=== PATIENT | male | born 1950 | race Caucasian/White ===

== ENCOUNTER 2021-03-26 16:46 | Inpatient (IN) | payer MEDICARE, OTHER ==
[2021-03-28] MEDS ORDERED: HumaLOG 300 UNITS/3 ML VIAL SC PRN (00:05)
[2021-03-28] MEDS ORDERED: Acetaminophen 325 MG TAB PO PRN (00:05)
[2021-03-28] MEDS ORDERED: Dextrose 5% in Water 1,000 ML IV PRN (00:05)
[2021-03-28] MEDS ORDERED: Dextrose 50% Abboject 50 ML SYRINGE SLOW IVP PRN (00:05)
[2021-03-28] MEDS ORDERED: Acetaminophen 650 MG Suppository PR PRN (00:05)
[2021-03-28] MEDS ORDERED: Ondansetron ODT 4 MG TAB PO PRN (00:05)
[2021-03-28 01:35] LABS: Hemoglobin 9.4 g/dL (14.0-18.0); Mean Corpuscular HGB CONC 30.8 g/dL (32.0-36.0); Mean Corpuscular Hemoglobin 31.2 pg (27.0-31.0); RBC Distribution Width 17.3 % (11.5-14.5); Red Blood Cell (RBC) Count 3.01 mill/uL (4.70-6.10); White Blood Cell (WBC) Count 6.2 thou/uL (4.8-10.8)
[2021-03-28 01:37] LABS: ALT (SGPT) 9 U/L (8-55); AST (SGOT) 23 U/L (5-34); Albumin 2.2 g/dL (3.4-4.8); Alkaline Phosphatase 58 U/L (40-110); Anion Gap 23 mmol/L (10-20); BUN (Urea Nitrogen) 39 mg/dL (8.4-25.7); Bilirubin, Total 0.4 mg/dL (0.2-1.2); Calc. Creatinine Clearance 13 mL/min (70-130); Calcium 8.4 mg/dL (7.8-10.44); Carbon Dioxide 19 mmol/L (23-31); Chloride 101 mmol/L (98-107); Globulin 4.2 g/dL (2.4-3.5); Glucose 231 mg/dL (80-115); Magnesium 1.8 mg/dL (1.6-2.6); Phosphorus 3.2 mg/dL (2.3-4.7); Potassium 3.5 mmol/L (3.5-5.1); Protein, Total 6.4 g/dL (5.8-8.1); Sodium 139 mmol/L (136-145)
[2021-03-28 01:51] LABS: #Lymphocytes 0.6 thou/uL (1.20-3.40); #Monocytes 0.6 thou/uL (0.11-0.59); #Neutrophils 4.9 thou/uL (1.40-6.50); %Basophils 0.6 % (0.0-1.0); %Eosinophils 0.3 % (0.0-10.0); %Lymphocytes 10.2 % (21.0-51.0); %Monocytes 8.9 % (0.0-10.0); Anisocytosis SLIGHT = 6-15 cells (100X) (0-5/hpf); MDiff Complete? YES; Mean Platelet Volume 8.8 fL (7.4-10.4); Platelet Count 113 thou/uL (130-400); Platelet Morphology Comment Appears Decreased
[2021-03-28 08:38] LABS: INR-International Normal Ratio 2.3; Prothrombin Time 25.8 sec (12.0-14.7)
[2021-03-28] MEDS ORDERED: Epoetin (ESRD) 20,000 UNITS/ML SC SCH (08:45)
[2021-03-28] MEDS: Zinc Sulfate 220 MG CAP PO SCH (10:26)
[2021-03-28] MEDS: Ascorbic Acid 500 mg Chewable Tablet PO SCH (10:26)
[2021-03-28] MEDS: Cholecalciferol (Vitamin D3) 400 UNITS TAB PO SCH (10:26)
[2021-03-28] MEDS ORDERED: Heparin 10,000 UNITS/ 10 ML VIAL ONE ×2 (10:38→11:08)
[2021-03-28] MEDS ORDERED: Clopidogrel Bisulfate 300 MG TAB PO SCH (12:00)
[2021-03-28] MEDS ORDERED: Pantoprazole 40 MG VIAL IVP SCH ×2 (12:30→13:00)
[2021-03-28] MEDS: EPOETIN ALFA-EPBX (ESRD) 4,000 UNIT/ML VIAL SC SCH (14:00)
[2021-03-28] MEDS: Warfarin Sodium 1 MG TAB PO SCH (16:42)
[2021-03-28] MEDS: Ondansetron PF 4 MG/2 ML Vial IVP PRN (16:49)
[2021-03-28 20:38] LABS: HBSAg Index 0.43 S/CO (0-0.99); Hep B Surf Ag Non-Reactive S/CO (NonReactive)
[2021-03-29 06:22] LABS: INR-International Normal Ratio 2.3
[2021-03-29] MEDS: Cholecalciferol (Vitamin D3) 400 UNITS TAB PO SCH (09:18)
[2021-03-29] MEDS: Ondansetron PF 4 MG/2 ML Vial IVP PRN (09:18)
[2021-03-29] MEDS: Ascorbic Acid 500 mg Chewable Tablet PO SCH (09:18)
[2021-03-29] MEDS: Pantoprazole 40 MG VIAL IVP SCH (09:19)
[2021-03-29] MEDS: Zinc Sulfate 220 MG CAP PO SCH (09:19)
[2021-03-29] MEDS: Clopidogrel Bisulfate 75 MG TAB PO SCH (09:19)
[2021-03-29] MEDS: Warfarin Sodium 1 MG TAB PO SCH (18:10)
[2021-03-29] MEDS: Ondansetron PF 4 MG/2 ML Vial IVP SCH ×2 (18:10→23:28)
[2021-03-30] MEDS: Ondansetron PF 4 MG/2 ML Vial IVP SCH ×3 (06:54→18:54)
[2021-03-30 07:00] LABS: Hemoglobin 9.8 g/dL (14.0-18.0); Platelet Count 122 thou/uL (130-400)
[2021-03-30 07:16] LABS: INR-International Normal Ratio 2.5; Prothrombin Time 27.7 sec (12.0-14.7)
[2021-03-30 09:38] LABS: Hemoglobin A1c 7.9 % (4.0-6.0)
[2021-03-30] MEDS: Clopidogrel Bisulfate 75 MG TAB PO SCH (10:00)
[2021-03-30] MEDS: Ascorbic Acid 500 mg Chewable Tablet PO SCH (10:01)
[2021-03-30] MEDS: Zinc Sulfate 220 MG CAP PO SCH (10:01)
[2021-03-30] MEDS: Cholecalciferol (Vitamin D3) 400 UNITS TAB PO SCH (10:01)
[2021-03-30] MEDS: Pantoprazole 40 MG VIAL IVP SCH (10:02)
[2021-03-30] MEDS ORDERED: Heparin 10,000 UNITS/ 10 ML VIAL ONE (10:43)
[2021-03-30] MEDS ORDERED: Cosyntropin 250 MCG VIAL SLOW IVP SCH ×2 (16:15→16:30)
[2021-03-30] MEDS: Warfarin Sodium 1 MG TAB PO SCH (18:54)
[2021-03-31] MEDS: Ondansetron PF 4 MG/2 ML Vial IVP SCH ×4 (00:47→21:52)
[2021-03-31 13:41] LABS: #Lymphocytes 0.9 thou/uL (1.20-3.40); #Monocytes 0.5 thou/uL (0.11-0.59); #Neutrophils 3.8 thou/uL (1.40-6.50); %Basophils 0.2 % (0.0-1.0); %Eosinophils 0.2 % (0.0-10.0); %Lymphocytes 17.7 % (21.0-51.0); Hemoglobin 10.4 g/dL (14.0-18.0); Mean Corpuscular HGB CONC 30.8 g/dL (32.0-36.0); Mean Corpuscular Hemoglobin 29.2 pg (27.0-31.0); Mean Corpuscular Volume 94.8 fL (78.0-98.0); Mean Platelet Volume 8.3 fL (7.4-10.4); Platelet Count 135 thou/uL (130-400); RBC Distribution Width 17.5 % (11.5-14.5); Red Blood Cell (RBC) Count 3.56 mill/uL (4.70-6.10); White Blood Cell (WBC) Count 5.3 thou/uL (4.8-10.8)
[2021-03-31 13:52] LABS: INR-International Normal Ratio 2.7; Prothrombin Time 29.5 sec (12.0-14.7)
[2021-03-31] MEDS ORDERED: Amiodarone 200 MG TAB PO SCH (14:00)
[2021-03-31 14:02] LABS: Anion Gap 21 mmol/L (10-20); BUN (Urea Nitrogen) 22 mg/dL (8.4-25.7); Calc. Creatinine Clearance 17 mL/min (70-130); Calcium 8.5 mg/dL (7.8-10.44); Carbon Dioxide 22 mmol/L (23-31); Chloride 97 mmol/L (98-107); Glucose 175 mg/dL (80-115); Potassium 3.4 mmol/L (3.5-5.1); Sodium 137 mmol/L (136-145)
[2021-03-31] MEDS: Ascorbic Acid 500 mg Chewable Tablet PO SCH (16:27)
[2021-03-31] MEDS: Cholecalciferol (Vitamin D3) 400 UNITS TAB PO SCH (16:27)
[2021-03-31] MEDS: Clopidogrel Bisulfate 75 MG TAB PO SCH (16:27)
[2021-03-31] MEDS: Pantoprazole 40 MG VIAL IVP SCH (16:27)
[2021-03-31] MEDS: Zinc Sulfate 220 MG CAP PO SCH (16:28)
[2021-03-31] MEDS: Metoclopramide HCl 10 MG TAB PO SCH ×2 (18:19→21:56)
[2021-03-31] MEDS: Metoprolol Tartrate 50 MG TAB PO SCH (21:56)
[2021-04-01] MEDS: Melatonin 3 MG TAB PO PRN ×2 (00:52→23:00)
[2021-04-01] MEDS: Ondansetron PF 4 MG/2 ML Vial IVP SCH ×5 (00:52→23:42)
[2021-04-01] MEDS: Pantoprazole 40 MG VIAL IVP SCH (08:34)
[2021-04-01] MEDS: Clopidogrel Bisulfate 75 MG TAB PO SCH (08:34)
[2021-04-01] MEDS: Ascorbic Acid 500 mg Chewable Tablet PO SCH (08:35)
[2021-04-01] MEDS: Zinc Sulfate 220 MG CAP PO SCH (08:35)
[2021-04-01] MEDS: Cholecalciferol (Vitamin D3) 400 UNITS TAB PO SCH (08:36)
[2021-04-01] MEDS: Amiodarone 200 MG TAB PO SCH (08:36)
[2021-04-01] MEDS: Metoclopramide HCl 10 MG TAB PO SCH ×4 (08:37→21:22)
[2021-04-01] MEDS: Metoprolol Tartrate 50 MG TAB PO SCH ×3 (08:37→21:22)
[2021-04-01 11:55] LABS: Hemoglobin 9.8 g/dL (14.0-18.0); Platelet Count 119 thou/uL (130-400)
[2021-04-01 12:03] LABS: INR-International Normal Ratio 2.6
[2021-04-01] MEDS: Dronabinol 2.5 MG CAP PO SCH (18:27)
[2021-04-01] MEDS ORDERED: Dronabinol 2.5 MG CAP PO SCH (19:00)
[2021-04-02 06:09] LABS: INR-International Normal Ratio 2.5; Prothrombin Time 27.5 sec (12.0-14.7)
[2021-04-02] MEDS: Ondansetron PF 4 MG/2 ML Vial IVP SCH ×3 (06:14→17:24)
[2021-04-02] MEDS: Clopidogrel Bisulfate 75 MG TAB PO SCH (09:22)
[2021-04-02] MEDS: Ascorbic Acid 500 mg Chewable Tablet PO SCH (09:22)
[2021-04-02] MEDS: Metoprolol Tartrate 50 MG TAB PO SCH ×2 (09:23→21:15)
[2021-04-02] MEDS: Amiodarone 200 MG TAB PO SCH (09:23)
[2021-04-02] MEDS: Cholecalciferol (Vitamin D3) 400 UNITS TAB PO SCH (09:23)
[2021-04-02] MEDS: Zinc Sulfate 220 MG CAP PO SCH (09:23)
[2021-04-02] MEDS: Metoclopramide HCl 10 MG TAB PO SCH ×4 (09:23→20:09)
[2021-04-02] MEDS: Dronabinol 2.5 MG CAP PO SCH ×2 (09:24→17:22)
[2021-04-02] MEDS: Pantoprazole 40 MG VIAL IVP SCH (09:25)
[2021-04-02] MEDS ORDERED: Digoxin 0.5 MG/2 ML AMP SLOW IVP SCH ×2 (14:15→20:30)
[2021-04-02] MEDS: Warfarin Sodium 1 MG TAB PO SCH (17:23)
[2021-04-03] MEDS: Ondansetron PF 4 MG/2 ML Vial IVP SCH ×5 (01:01→23:49)
[2021-04-03 07:02] LABS: Hemoglobin 9.8 g/dL (14.0-18.0); Platelet Count 110 thou/uL (130-400)
[2021-04-03] MEDS ORDERED: Amiodarone 200 MG TAB PO SCH (09:00)
[2021-04-03] MEDS ORDERED: Digoxin 0.125 MG TAB PO SCH (09:00)
[2021-04-03] MEDS: Cholecalciferol (Vitamin D3) 400 UNITS TAB PO SCH (09:04)
[2021-04-03] MEDS: Dronabinol 2.5 MG CAP PO SCH ×2 (09:04→18:31)
[2021-04-03] MEDS: Metoclopramide HCl 10 MG TAB PO SCH ×4 (09:04→22:00)
[2021-04-03] MEDS: Metoprolol Tartrate 50 MG TAB PO SCH ×2 (09:05→22:00)
[2021-04-03] MEDS: Pantoprazole 40 MG VIAL IVP SCH (09:05)
[2021-04-03] MEDS: Clopidogrel Bisulfate 75 MG TAB PO SCH (09:05)
[2021-04-03] MEDS: Ascorbic Acid 500 mg Chewable Tablet PO SCH (09:05)
[2021-04-03] MEDS: Zinc Sulfate 220 MG CAP PO SCH (09:05)
[2021-04-03] MEDS: Warfarin Sodium 1 MG TAB PO SCH (18:29)
[2021-04-04 05:22] LABS: #Eosinphils 0.1 thou/uL (0.0-0.7); #Lymphocytes 0.9 thou/uL (1.20-3.40); #Monocytes 0.4 thou/uL (0.11-0.59); #Neutrophils 4.3 thou/uL (1.40-6.50); %Basophils 0.2 % (0.0-1.0); %Lymphocytes 15.7 % (21.0-51.0); %Monocytes 6.3 % (0.0-10.0); Hemoglobin 9.8 g/dL (14.0-18.0); Mean Corpuscular HGB CONC 31.8 g/dL (32.0-36.0); Mean Corpuscular Hemoglobin 29.4 pg (27.0-31.0); Mean Corpuscular Volume 92.3 fL (78.0-98.0); Platelet Count 118 thou/uL (130-400); RBC Distribution Width 16.8 % (11.5-14.5); Red Blood Cell (RBC) Count 3.32 mill/uL (4.70-6.10); White Blood Cell (WBC) Count 5.6 thou/uL (4.8-10.8)
[2021-04-04 05:32] LABS: INR-International Normal Ratio 3.1; Prothrombin Time 32.5 sec (12.0-14.7)
[2021-04-04 05:46] LABS: Anion Gap 12 mmol/L (10-20); BUN (Urea Nitrogen) 37 mg/dL (8.4-25.7); Calc. Creatinine Clearance 11 mL/min (70-130); Calcium 8.1 mg/dL (7.8-10.44); Carbon Dioxide 27 mmol/L (23-31); Chloride 99 mmol/L (98-107); Glucose 186 mg/dL (80-115); Potassium 3.3 mmol/L (3.5-5.1); Sodium 135 mmol/L (136-145)
[2021-04-04] MEDS: Metoclopramide HCl 10 MG TAB PO SCH ×4 (06:35→21:55)
[2021-04-04] MEDS: Ondansetron PF 4 MG/2 ML Vial IVP SCH ×3 (06:35→18:21)
[2021-04-04] MEDS: HumaLOG 300 UNITS/3 ML VIAL SC PRN (06:36)
[2021-04-04] MEDS: Ascorbic Acid 500 mg Chewable Tablet PO SCH (08:44)
[2021-04-04] MEDS: Dronabinol 2.5 MG CAP PO SCH ×2 (08:44→18:21)
[2021-04-04] MEDS: Metoprolol Tartrate 50 MG TAB PO SCH ×2 (08:45→21:56)
[2021-04-04] MEDS: Cholecalciferol (Vitamin D3) 400 UNITS TAB PO SCH (08:45)
[2021-04-04] MEDS: Zinc Sulfate 220 MG CAP PO SCH (08:45)
[2021-04-04] MEDS: Clopidogrel Bisulfate 75 MG TAB PO SCH (08:45)
[2021-04-04] MEDS: Pantoprazole 40 MG VIAL IVP SCH (08:45)
[2021-04-04] MEDS ORDERED: Heparin 10,000 UNITS/ 10 ML VIAL ONE (09:46)
[2021-04-04 13:38] LABS: A/G Ratio 0.7 (0.7-1.7); Albumin 2.5 g/dL (2.9-4.4); Alpha 1 0.2 g/dL (0.0-0.4); Alpha 2 0.6 g/dL (0.4-1.0); Beta 0.9 g/dL (0.7-1.3); Gamma 1.8 g/dL (0.4-1.8); Globulin, Total 3.6 g/dL (2.2-3.9); M-Spike Not Observed g/dL (Not Observed); Protein Electrophoresis Intrp Note: (.)
[2021-04-04 13:38] LABS: Alpha 1 - Ur 3.2 % (.); Alpha 2 - Ur 11.3 % (.); Beta-Ur 12.5 % (.); M-Spike,% Not Observed % (Not Observed); Protein, Urine 155.6 mg/dL (Not Estab.)
[2021-04-04] MEDS: Warfarin Sodium 1 MG TAB PO SCH (18:19)
[2021-04-04] MEDS: EPOETIN ALFA-EPBX (ESRD) 4,000 UNIT/ML VIAL SC SCH (18:22)
[2021-04-04] MEDS ORDERED: guaiFENesin 200 MG TAB PO PRN (22:11)
[2021-04-04] MEDS: Benzonatate 100 MG CAP PO PRN (22:40)
[2021-04-05] MEDS: Ondansetron PF 4 MG/2 ML Vial IVP SCH ×4 (00:59→17:24)
[2021-04-05 05:21] LABS: #Monocytes 0.4 thou/uL (0.11-0.59); #Neutrophils 4.3 thou/uL (1.40-6.50); %Basophils 0.5 % (0.0-1.0); %Eosinophils 0.2 % (0.0-10.0); %Lymphocytes 17.6 % (21.0-51.0); %Monocytes 7.1 % (0.0-10.0); %Neutrophils 74.6 % (42.0-75.0); Hemoglobin 10.3 g/dL (14.0-18.0); Mean Corpuscular Hemoglobin 30.2 pg (27.0-31.0); Mean Corpuscular Volume 94.6 fL (78.0-98.0); Mean Platelet Volume 8.5 fL (7.4-10.4); Platelet Count 126 thou/uL (130-400); Red Blood Cell (RBC) Count 3.39 mill/uL (4.70-6.10); White Blood Cell (WBC) Count 5.7 thou/uL (4.8-10.8)
[2021-04-05 05:29] LABS: INR-International Normal Ratio 2.8; Prothrombin Time 29.9 sec (12.0-14.7)
[2021-04-05] MEDS: Ascorbic Acid 500 mg Chewable Tablet PO SCH (07:28)
[2021-04-05] MEDS: Pantoprazole 40 MG VIAL IVP SCH (07:28)
[2021-04-05] MEDS: Zinc Sulfate 220 MG CAP PO SCH (07:28)
[2021-04-05] MEDS: Digoxin 0.125 MG TAB PO SCH (07:28)
[2021-04-05] MEDS: Clopidogrel Bisulfate 75 MG TAB PO SCH (07:29)
[2021-04-05] MEDS: Cholecalciferol (Vitamin D3) 400 UNITS TAB PO SCH (07:29)
[2021-04-05] MEDS: Metoclopramide HCl 10 MG TAB PO SCH ×4 (07:29→21:07)
[2021-04-05] MEDS: Metoprolol Tartrate 50 MG TAB PO SCH ×2 (07:29→21:07)
[2021-04-05] MEDS: Benzonatate 100 MG CAP PO PRN ×2 (07:36→21:07)
[2021-04-05] MEDS: Dronabinol 2.5 MG CAP PO SCH ×2 (11:34→18:14)
[2021-04-05] MEDS ORDERED: Potassium Chloride 20 MEQ TAB PO SCH (12:00)
[2021-04-05] MEDS: Warfarin Sodium 1 MG TAB PO SCH (17:29)
[2021-04-06] MEDS: Ondansetron PF 4 MG/2 ML Vial IVP SCH ×4 (00:23→18:10)
[2021-04-06 05:24] LABS: #Lymphocytes 0.8 thou/uL (1.20-3.40); #Monocytes 0.4 thou/uL (0.11-0.59); #Neutrophils 4.4 thou/uL (1.40-6.50); %Basophils 0.1 % (0.0-1.0); %Eosinophils 0.5 % (0.0-10.0); %Lymphocytes 13.6 % (21.0-51.0); %Monocytes 6.5 % (0.0-10.0); %Neutrophils 79.2 % (42.0-75.0); Hemoglobin 10.5 g/dL (14.0-18.0); Mean Corpuscular HGB CONC 31.4 g/dL (32.0-36.0); Mean Corpuscular Hemoglobin 29.3 pg (27.0-31.0); Mean Corpuscular Volume 93.3 fL (78.0-98.0); Mean Platelet Volume 8.1 fL (7.4-10.4); Platelet Count 154 thou/uL (130-400); RBC Distribution Width 17.4 % (11.5-14.5); Red Blood Cell (RBC) Count 3.59 mill/uL (4.70-6.10); White Blood Cell (WBC) Count 5.6 thou/uL (4.8-10.8)
[2021-04-06 05:35] LABS: INR-International Normal Ratio 3.3; Prothrombin Time 34.5 sec (12.0-14.7)
[2021-04-06] MEDS ORDERED: Heparin 10,000 UNITS/ 10 ML VIAL ONE (08:52)
[2021-04-06] MEDS: Ascorbic Acid 500 mg Chewable Tablet PO SCH (09:27)
[2021-04-06] MEDS: Metoclopramide HCl 10 MG TAB PO SCH ×4 (09:27→21:41)
[2021-04-06] MEDS: Cholecalciferol (Vitamin D3) 400 UNITS TAB PO SCH (09:27)
[2021-04-06] MEDS: Pantoprazole 40 MG VIAL IVP SCH (09:27)
[2021-04-06] MEDS: Zinc Sulfate 220 MG CAP PO SCH (09:27)
[2021-04-06] MEDS: Clopidogrel Bisulfate 75 MG TAB PO SCH (09:27)
[2021-04-06] MEDS: Metoprolol Tartrate 50 MG TAB PO SCH ×2 (09:28→21:41)
[2021-04-06] MEDS: Benzonatate 100 MG CAP PO PRN ×2 (11:05→21:44)
[2021-04-06] MEDS: Dronabinol 2.5 MG CAP PO SCH ×2 (11:25→18:10)
[2021-04-06] MEDS: HumaLOG 300 UNITS/3 ML VIAL SC PRN (18:12)
[2021-04-07] MEDS: Ondansetron PF 4 MG/2 ML Vial IVP SCH ×4 (00:39→18:28)
[2021-04-07 04:40] LABS: #Lymphocytes 0.8 thou/uL (1.20-3.40); #Monocytes 0.5 thou/uL (0.11-0.59); #Neutrophils 3.9 thou/uL (1.40-6.50); %Basophils 0.3 % (0.0-1.0); %Eosinophils 0.6 % (0.0-10.0); %Lymphocytes 15.4 % (21.0-51.0); %Neutrophils 74.6 % (42.0-75.0); Hemoglobin 9.9 g/dL (14.0-18.0); Mean Corpuscular HGB CONC 30.7 g/dL (32.0-36.0); Mean Corpuscular Hemoglobin 28.4 pg (27.0-31.0); Mean Corpuscular Volume 92.7 fL (78.0-98.0); Platelet Count 153 thou/uL (130-400); RBC Distribution Width 17.5 % (11.5-14.5); Red Blood Cell (RBC) Count 3.48 mill/uL (4.70-6.10); White Blood Cell (WBC) Count 5.2 thou/uL (4.8-10.8)
[2021-04-07 05:02] LABS: INR-International Normal Ratio 3.6; Prothrombin Time 36.7 sec (12.0-14.7)
[2021-04-07] MEDS: Dronabinol 2.5 MG CAP PO SCH ×2 (09:19→16:45)
[2021-04-07] MEDS: Digoxin 0.125 MG TAB PO SCH (09:19)
[2021-04-07] MEDS: Metoclopramide HCl 10 MG TAB PO SCH ×4 (09:20→21:34)
[2021-04-07] MEDS: Cholecalciferol (Vitamin D3) 400 UNITS TAB PO SCH (09:20)
[2021-04-07] MEDS: Zinc Sulfate 220 MG CAP PO SCH (09:20)
[2021-04-07] MEDS: Clopidogrel Bisulfate 75 MG TAB PO SCH (09:20)
[2021-04-07] MEDS: Ascorbic Acid 500 mg Chewable Tablet PO SCH (09:20)
[2021-04-07] MEDS: Folic Acid 1 MG TAB PO SCH (09:20)
[2021-04-07] MEDS: Metoprolol Tartrate 50 MG TAB PO SCH ×2 (09:20→21:34)
[2021-04-07] MEDS: Pantoprazole 40 MG VIAL IVP SCH (09:21)
[2021-04-07] MEDS ORDERED: Warfarin Sodium 1 MG TAB PO SCH (17:00)
[2021-04-08] MEDS: Ondansetron PF 4 MG/2 ML Vial IVP SCH ×4 (01:06→17:13)
[2021-04-08 04:39] LABS: #Lymphocytes 0.7 thou/uL (1.20-3.40); #Monocytes 0.6 thou/uL (0.11-0.59); %Basophils 0.3 % (0.0-1.0); %Eosinophils 0.4 % (0.0-10.0); %Lymphocytes 11.6 % (21.0-51.0); %Neutrophils 78.8 % (42.0-75.0); Hemoglobin 10.1 g/dL (14.0-18.0); Mean Corpuscular HGB CONC 32.5 g/dL (32.0-36.0); Mean Corpuscular Hemoglobin 30.6 pg (27.0-31.0); Mean Corpuscular Volume 94.3 fL (78.0-98.0); Mean Platelet Volume 8.2 fL (7.4-10.4); Platelet Count 163 thou/uL (130-400); RBC Distribution Width 17.4 % (11.5-14.5); Red Blood Cell (RBC) Count 3.31 mill/uL (4.70-6.10); White Blood Cell (WBC) Count 6.3 thou/uL (4.8-10.8)
[2021-04-08 05:01] LABS: INR-International Normal Ratio 3.5; Prothrombin Time 35.8 sec (12.0-14.7)
[2021-04-08 05:12] LABS: Anion Gap 14 mmol/L (10-20); BUN (Urea Nitrogen) 36 mg/dL (8.4-25.7); Calc. Creatinine Clearance 11 mL/min (70-130); Calcium 8.2 mg/dL (7.8-10.44); Carbon Dioxide 28 mmol/L (23-31); Chloride 99 mmol/L (98-107); Glucose 332 mg/dL (80-115); Potassium 3.7 mmol/L (3.5-5.1); Sodium 137 mmol/L (136-145)
[2021-04-08] MEDS: HumaLOG 300 UNITS/3 ML VIAL SC PRN ×2 (06:05→17:14)
[2021-04-08] MEDS ORDERED: Heparin 10,000 UNITS/ 10 ML VIAL ONE (08:26)
[2021-04-08] MEDS ORDERED: Cosyntropin 250 MCG VIAL SLOW IVP SCH (09:15)
[2021-04-08] MEDS: Metoclopramide HCl 10 MG TAB PO SCH ×4 (12:03→20:26)
[2021-04-08] MEDS: Dronabinol 2.5 MG CAP PO SCH ×2 (12:03→15:30)
[2021-04-08] MEDS ORDERED: Polyethylene Glycol 3350 17 GM Packet PER TUBE SCH (13:00)
[2021-04-08] MEDS: Ascorbic Acid 500 mg Chewable Tablet PO SCH (13:43)
[2021-04-08] MEDS: Folic Acid 1 MG TAB PO SCH (13:43)
[2021-04-08] MEDS: Metoprolol Tartrate 50 MG TAB PO SCH ×2 (13:43→21:52)
[2021-04-08] MEDS: Zinc Sulfate 220 MG CAP PO SCH (13:44)
[2021-04-08] MEDS: Cholecalciferol (Vitamin D3) 400 UNITS TAB PO SCH (13:44)
[2021-04-08] MEDS: Clopidogrel Bisulfate 75 MG TAB PO SCH (13:44)
[2021-04-08] MEDS: Pantoprazole 40 MG VIAL IVP SCH (13:44)
[2021-04-09] MEDS: Ondansetron PF 4 MG/2 ML Vial IVP SCH ×4 (02:35→17:50)
[2021-04-09 04:58] LABS: INR-International Normal Ratio 1.5; Prothrombin Time 18.1 sec (12.0-14.7)
[2021-04-09 05:14] LABS: Phosphorus 1.2 mg/dL (2.3-4.7)
[2021-04-09] MEDS: HumaLOG 300 UNITS/3 ML VIAL SC PRN ×2 (07:12→12:54)
[2021-04-09] MEDS: Clopidogrel Bisulfate 75 MG TAB PO SCH (10:19)
[2021-04-09] MEDS: Folic Acid 1 MG TAB PO SCH (10:19)
[2021-04-09] MEDS: Metoclopramide HCl 10 MG TAB PO SCH ×4 (10:20→21:33)
[2021-04-09] MEDS: PHOS-NAK 1 PKT PACK PO SCH ×2 (10:20→10:52)
[2021-04-09] MEDS: Metoprolol Tartrate 50 MG TAB PO SCH ×2 (10:20→21:32)
[2021-04-09] MEDS: Zinc Sulfate 220 MG CAP PO SCH (10:20)
[2021-04-09] MEDS: Cholecalciferol (Vitamin D3) 400 UNITS TAB PO SCH (10:20)
[2021-04-09] MEDS: Ascorbic Acid 500 mg Chewable Tablet PO SCH (10:20)
[2021-04-09] MEDS: Melatonin 3 MG TAB PO PRN ×2 (10:20→21:38)
[2021-04-09] MEDS: Pantoprazole 40 MG VIAL IVP SCH (10:21)
[2021-04-09] MEDS: Polyethylene Glycol 3350 17 GM Packet PER TUBE SCH (10:21)
[2021-04-09] MEDS: Dronabinol 2.5 MG CAP PO SCH ×2 (10:22→17:41)
[2021-04-09] MEDS ORDERED: Lantus 1000 UNITS/10 ML VIAL SC SCH (13:30)
[2021-04-09] MEDS ORDERED: Sodium Phosphate 15 MMOL in Sodium Chloride 0.9% 250 ML 250 ML IVPB SCH (16:30)
[2021-04-09] MEDS ORDERED: Warfarin Sodium 1 MG TAB PO SCH (17:00)
[2021-04-10] MEDS: Ondansetron PF 4 MG/2 ML Vial IVP SCH ×4 (00:22→17:08)
[2021-04-10] MEDS ORDERED: Ondansetron HCl/PF 4 MG/2 ML Vial IVP PRN (08:12)
[2021-04-10] MEDS ORDERED: Promethazine HCl 25 MG/ML VIAL IVPB PRN (08:12)
[2021-04-10] MEDS ORDERED: Promethazine HCl 25 MG/ML VIAL IM PRN (08:12)
[2021-04-10 08:51] LABS: #Eosinphils 0.1 thou/uL (0.0-0.7); #Lymphocytes 0.9 thou/uL (1.20-3.40); #Monocytes 0.5 thou/uL (0.11-0.59); #Neutrophils 3.8 thou/uL (1.40-6.50); %Basophils 0.7 % (0.0-1.0); %Lymphocytes 17.4 % (21.0-51.0); %Monocytes 9.2 % (0.0-10.0); %Neutrophils 71.7 % (42.0-75.0); Hemoglobin 9.5 g/dL (14.0-18.0); Mean Corpuscular Hemoglobin 29.1 pg (27.0-31.0); Mean Corpuscular Volume 94.2 fL (78.0-98.0); Mean Platelet Volume 8.5 fL (7.4-10.4); Platelet Count 133 thou/uL (130-400); RBC Distribution Width 17.3 % (11.5-14.5); Red Blood Cell (RBC) Count 3.25 mill/uL (4.70-6.10); White Blood Cell (WBC) Count 5.2 thou/uL (4.8-10.8)
[2021-04-10 08:59] LABS: INR-International Normal Ratio 1.2; Prothrombin Time 14.9 sec (12.0-14.7)
[2021-04-10] MEDS ORDERED: Lidocaine 1% PF 5 ML VIAL ONE (09:22)
[2021-04-10] MEDS ORDERED: PROPOFOL 200 MG/20 ML VIAL ONE (09:22)
[2021-04-10] MEDS ORDERED: PHENYLEPHRINE-NS 100 MCG/ML 10 ML SYRINGE ONE (09:22)
[2021-04-10 09:23] LABS: ALT (SGPT) Less than 7 U/L (8-55); AST (SGOT) 9 U/L (5-34); Albumin 2.1 g/dL (3.4-4.8); Alkaline Phosphatase 59 U/L (40-110); Anion Gap 11 mmol/L (10-20); BUN (Urea Nitrogen) 38 mg/dL (8.4-25.7); Bilirubin, Total 0.4 mg/dL (0.2-1.2); Calc. Creatinine Clearance 17 mL/min (70-130); Calcium 7.9 mg/dL (7.8-10.44); Carbon Dioxide 28 mmol/L (23-31); Chloride 100 mmol/L (98-107); Globulin 3.5 g/dL (2.4-3.5); Glucose 109 mg/dL (80-115); Magnesium 1.8 mg/dL (1.6-2.6); Phosphorus 1.7 mg/dL (2.3-4.7); Potassium 3.3 mmol/L (3.5-5.1); Protein, Total 5.6 g/dL (5.8-8.1); Sodium 136 mmol/L (136-145)
[2021-04-10] MEDS: Clopidogrel Bisulfate 75 MG TAB PO SCH (09:35)
[2021-04-10] MEDS: Digoxin 0.125 MG TAB PO SCH (09:35)
[2021-04-10] MEDS: Dronabinol 2.5 MG CAP PO SCH ×2 (10:58→17:00)
[2021-04-10] MEDS: Metoclopramide HCl 10 MG TAB PO SCH ×4 (10:59→21:47)
[2021-04-10] MEDS: Ascorbic Acid 500 mg Chewable Tablet PO SCH (10:59)
[2021-04-10] MEDS: Metoprolol Tartrate 50 MG TAB PO SCH ×2 (11:00→21:47)
[2021-04-10] MEDS: Cholecalciferol (Vitamin D3) 400 UNITS TAB PO SCH (11:00)
[2021-04-10] MEDS: Folic Acid 1 MG TAB PO SCH (11:00)
[2021-04-10] MEDS: Polyethylene Glycol 3350 17 GM Packet PER TUBE SCH (11:01)
[2021-04-10] MEDS: Zinc Sulfate 220 MG CAP PO SCH (11:01)
[2021-04-10 13:06] VITALS: BMI 18.6
[2021-04-10] MEDS: Morphine 4 MG/ML VIAL SLOW IVP PRN ×2 (13:07→17:07)
[2021-04-10] MEDS: Pantoprazole 40 MG VIAL IVP SCH (13:15)
[2021-04-10] MEDS: Mirtazapine 15 MG TAB PO SCH (21:47)
[2021-04-11] MEDS: Ondansetron PF 4 MG/2 ML Vial IVP SCH ×4 (00:13→16:35)
[2021-04-11 06:50] LABS: INR-International Normal Ratio 1.2; Prothrombin Time 15.2 sec (12.0-14.7)
[2021-04-11] MEDS ORDERED: PHOS-NAK 1 PKT PACK PO SCH (09:00)
[2021-04-11] MEDS ORDERED: Heparin 10,000 UNITS/ 10 ML VIAL ONE (09:07)
[2021-04-11] MEDS: Morphine 4 MG/ML VIAL SLOW IVP PRN ×2 (09:57→16:30)
[2021-04-11] MEDS: Dronabinol 2.5 MG CAP PO SCH ×2 (11:58→16:30)
[2021-04-11] MEDS: Metoclopramide HCl 10 MG TAB PO SCH ×4 (11:58→22:09)
[2021-04-11] MEDS: Folic Acid 1 MG TAB PO SCH (11:59)
[2021-04-11] MEDS: Zinc Sulfate 220 MG CAP PO SCH (11:59)
[2021-04-11] MEDS: Cholecalciferol (Vitamin D3) 400 UNITS TAB PO SCH (11:59)
[2021-04-11] MEDS: Polyethylene Glycol 3350 17 GM Packet PER TUBE SCH (11:59)
[2021-04-11] MEDS: Metoprolol Tartrate 50 MG TAB PO SCH ×2 (11:59→22:09)
[2021-04-11] MEDS: Ascorbic Acid 500 mg Chewable Tablet PO SCH (11:59)
[2021-04-11] MEDS: Clopidogrel Bisulfate 75 MG TAB PO SCH (13:01)
[2021-04-11] MEDS: EPOETIN ALFA-EPBX (ESRD) 4,000 UNIT/ML VIAL SC SCH (13:01)
[2021-04-11] MEDS: Pantoprazole 40 MG VIAL IVP SCH (13:01)
[2021-04-11] MEDS ORDERED: Midodrine HCl 5 MG TAB PER TUBE SCH (21:30)
[2021-04-11] MEDS: Mirtazapine 15 MG TAB PO SCH (22:09)
[2021-04-11 22:12] LABS: Chloride 101 mmol/L (98-107); Potassium 4.3 mmol/L (3.5-5.1); Sodium 136 mmol/L (136-145)
[2021-04-11 22:35] LABS: #Lymphocytes 1.1 thou/uL (1.20-3.40); #Monocytes 0.7 thou/uL (0.11-0.59); #Neutrophils 6.5 thou/uL (1.40-6.50); %Basophils 0.3 % (0.0-1.0); %Eosinophils 0.2 % (0.0-10.0); %Lymphocytes 12.8 % (21.0-51.0); %Monocytes 8.2 % (0.0-10.0); %Neutrophils 78.6 % (42.0-75.0); Anisocytosis SLIGHT = 6-15 cells (100X) (0-5/hpf); Hemoglobin 6.4 g/dL (14.0-18.0); MDiff Complete? YES; Mean Corpuscular HGB CONC 31.9 g/dL (32.0-36.0); Mean Corpuscular Volume 97.1 fL (78.0-98.0); Mean Platelet Volume 8.5 fL (7.4-10.4); Platelet Count 111 thou/uL (130-400); Platelet Morphology Comment Appears Decreased; RBC Distribution Width 17.7 % (11.5-14.5); Red Blood Cell (RBC) Count 2.05 mill/uL (4.70-6.10); White Blood Cell (WBC) Count 8.3 thou/uL (4.8-10.8)
[2021-04-11 22:56] LABS: Calcium 7.6 mg/dL (7.8-10.44); Glucose 303 mg/dL (80-115)
[2021-04-11] MEDS: Norepinephrine 8 MG/0.9% NS 250 ML IVPB SCH (22:57)
[2021-04-11 22:58] LABS: Anion Gap 18 mmol/L (10-20); Carbon Dioxide 22 mmol/L (23-31)
[2021-04-11 23:00] LABS: Calc. Creatinine Clearance 22 mL/min (70-130)
[2021-04-11 23:01] LABS: BUN (Urea Nitrogen) 29 mg/dL (8.4-25.7)
[2021-04-11 23:04] VITALS: BP 68/37
[2021-04-11] MEDS: Amiodarone 450 MG in Dextrose 5% in Water 250 ML IVPB SCH (23:31)
[2021-04-12] MEDS: Ondansetron PF 4 MG/2 ML Vial IVP SCH ×4 (00:59→17:15)
[2021-04-12] MEDS ORDERED: Digoxin 0.5 MG/2 ML AMP SLOW IVP SCH (01:41)
[2021-04-12] MEDS ORDERED: Digoxin 0.5 MG/2 ML AMP SLOW IVP PRN (01:56)
[2021-04-12] MEDS ORDERED: Amiodarone 150 MG in Dextrose 5% in Water 100 ML IVPB PRN (01:57)
[2021-04-12] MEDS: Morphine 4 MG/ML VIAL SLOW IVP PRN ×3 (04:07→20:47)
[2021-04-12 04:45] LABS: #Lymphocytes 1.3 thou/uL (1.20-3.40); #Monocytes 0.9 thou/uL (0.11-0.59); #Neutrophils 7.3 thou/uL (1.40-6.50); %Basophils 0.3 % (0.0-1.0); %Eosinophils 0.1 % (0.0-10.0); %Neutrophils 76.6 % (42.0-75.0); Hemoglobin 7.1 g/dL (14.0-18.0); Mean Corpuscular HGB CONC 32.6 g/dL (32.0-36.0); Mean Corpuscular Hemoglobin 29.5 pg (27.0-31.0); Mean Corpuscular Volume 90.6 fL (78.0-98.0); Mean Platelet Volume 9.1 fL (7.4-10.4); Platelet Count 116 thou/uL (130-400); RBC Distribution Width 17.6 % (11.5-14.5); White Blood Cell (WBC) Count 9.6 thou/uL (4.8-10.8)
[2021-04-12] MEDS: HumaLOG 300 UNITS/3 ML VIAL SC PRN (06:44)
[2021-04-12] MEDS: Norepinephrine 8 MG/0.9% NS 250 ML IVPB SCH (06:51)
[2021-04-12 07:16] VITALS: TEMP 99.2
[2021-04-12] MEDS: Folic Acid 1 MG TAB PO SCH ×2 (08:48→08:57)
[2021-04-12] MEDS: Zinc Sulfate 220 MG CAP PO SCH ×2 (08:48→08:57)
[2021-04-12] MEDS: Amiodarone 450 MG in Dextrose 5% in Water 250 ML IVPB SCH (08:48)
[2021-04-12] MEDS: Dronabinol 2.5 MG CAP PO SCH ×3 (08:48→16:26)
[2021-04-12] MEDS: Digoxin 0.125 MG TAB PO SCH (08:48)
[2021-04-12] MEDS: Metoclopramide HCl 10 MG TAB PO SCH ×4 (08:48→17:15)
[2021-04-12] MEDS: Clopidogrel Bisulfate 75 MG TAB PO SCH (08:49)
[2021-04-12] MEDS: Pantoprazole 40 MG VIAL IVP SCH (08:49)
[2021-04-12] MEDS: Ascorbic Acid 500 mg Chewable Tablet PO SCH ×2 (08:49→08:57)
[2021-04-12] MEDS: Cholecalciferol (Vitamin D3) 400 UNITS TAB PO SCH ×2 (08:49→08:57)
[2021-04-12] MEDS: Metoprolol Tartrate 50 MG TAB PO SCH ×2 (08:49→08:54)
[2021-04-12] MEDS: Polyethylene Glycol 3350 17 GM Packet PER TUBE SCH (08:54)
[2021-04-12] MEDS ORDERED: Lansoprazole 3 MG/ML ORAL SUSPENSION PER TUBE SCH (09:00)
[2021-04-12 09:38] LABS: Digoxin 4.31 ng/mL (0.8-2.0)
[2021-04-12] MEDS ORDERED: Ketamine 50 MG/ML (10ML VIAL) ONE (10:58)
[2021-04-12] MEDS ORDERED: Midazolam HCl 2 mg/2 ml Vial ONE (10:58)
[2021-04-12] MEDS ORDERED: Esmolol 100 MG/10 ML VIAL ONE (11:22)
[2021-04-12] MEDS ORDERED: Rocuronium Bromide 10 MG/ML (10ML VIAL) ONE (11:22)
[2021-04-12] MEDS ORDERED: Lidocaine 1% PF 5 ML VIAL ONE (11:22)
[2021-04-12] MEDS ORDERED: Fentanyl 100 MCG/2 ML VIAL ONE (11:31)
[2021-04-12] MEDS ORDERED: SUGAMMADEX SODIUM 200 MG/2 ML VIAL ONE (11:48)
[2021-04-12 13:11] LABS: Hemoglobin 9.9 g/dL (14.0-18.0)
[2021-04-13] MEDS ORDERED: Pantoprazole 40 MG VIAL IVP SCH (09:00)
[2021-04-13] MEDS ORDERED: Lansoprazole 3 MG/ML ORAL SUSPENSION PER TUBE SCH (09:00)
== END 2021-04-12 20:51 | disposition hospice, home (50) | DRG 177 ==
LOC: 2SW 03-27 18:48 → 2NO 04-05 18:36 → T4-B 04-09 15:48 → CCU 04-11 22:45
PROVIDERS: ADMIT Internal Medicine; ATTEND Internal Medicine
PROC: 5A1D70Z Performance of Urinary Filtration, Intermittent, Less than 6 Hours Per Day (ICD-10-PCS; 2021-03-28)
PROC: 8E0ZXY6 Isolation (ICD-10-PCS; 2021-03-28)
PROC: 0DH67UZ Insertion of Feeding Device into Stomach, Via Natural or Artificial Opening (ICD-10-PCS; 2021-04-07)
PROC: 0DH63UZ Insertion of Feeding Device into Stomach, Percutaneous Approach (ICD-10-PCS; principal; 2021-04-10)
PROC: 0DB98ZX Excision of Duodenum, Via Natural or Artificial Opening Endoscopic, Diagnostic (ICD-10-PCS; 2021-04-10)
PROC: 3E043XZ Introduction of Vasopressor into Central Vein, Percutaneous Approach (ICD-10-PCS; 2021-04-11)
PROC: 30233N1 Transfusion of Nonautologous Red Blood Cells into Peripheral Vein, Percutaneous Approach (ICD-10-PCS; 2021-04-12)
PROC: 3E033XZ Introduction of Vasopressor into Peripheral Vein, Percutaneous Approach (ICD-10-PCS; 2021-04-12)
PROC: 0DC68ZZ Extirpation of Matter from Stomach, Via Natural or Artificial Opening Endoscopic (ICD-10-PCS; 2021-04-12)
DX: U07.1 COVID-19 (principal); Z66 Do not resuscitate; Z51.5 Encounter for palliative care; N18.6 End stage renal disease; J12.82 Pneumonia due to coronavirus disease 2019; E43 Unspecified severe protein-calorie malnutrition; D62 Acute posthemorrhagic anemia; I50.22 Chronic systolic (congestive) heart failure; I13.2 Hypertensive heart and chronic kidney disease with heart failure and with stage 5 chronic kidney disease, or end stage renal disease; I48.11 Longstanding persistent atrial fibrillation; R64 Cachexia; E11.43 Type 2 diabetes mellitus with diabetic autonomic (poly)neuropathy; K94.21 Gastrostomy hemorrhage; Y83.3 Surgical operation with formation of external stoma as the cause of abnormal reaction of the patient, or of later complication, without mention of misadventure at the time of the procedure; R62.7 Adult failure to thrive; K31.84 Gastroparesis; K21.9 Gastro-esophageal reflux disease without esophagitis; I25.10 Atherosclerotic heart disease of native coronary artery without angina pectoris; D63.1 Anemia in chronic kidney disease; E78.5 Hyperlipidemia, unspecified; K59.09 Other constipation; I08.3 Combined rheumatic disorders of mitral, aortic and tricuspid valves; E11.22 Type 2 diabetes mellitus with diabetic chronic kidney disease; F32.A Depression, unspecified; N20.0 Calculus of kidney; I95.9 Hypotension, unspecified; Z99.2 Dependence on renal dialysis; Z68.38 Body mass index [BMI] 38.0-38.9, adult; Z79.01 Long term (current) use of anticoagulants; Z95.5 Presence of coronary angioplasty implant and graft; Z79.899 Other long term (current) drug therapy; Z79.84 Long term (current) use of oral hypoglycemic drugs
CPT/HCPCS: 36415; 36416; 36430; 74018; 76700; 78264; 80048; 80053; 80162; 80400; 82607; 82746; 83036; 83735; 84100; 84134; 84165; 84166; 85014; 85018; 85025; 85049; 85610; 86850; 86900; 86901; 87340; 88305; 88312; 88313; 90935; 93005; 93010; 93306; A9541; B4087; C9113; G0257; J0282; J0834; J1160; J1642; J1644; J1815; J1956; J2250; J2270; J2405; J2704; J3010; J7050; J7070; P9016; Q0162; Q0167; Q5105